=== PATIENT | male | born 1975 | race Caucasian/White ===

== ENCOUNTER 2016-05-14 10:52 | Emergency (ER) | payer BC, MEDICAID ==
[2016-05-14 11:21] VITALS: BP 172/82; PULSE 84; TEMP 98.1; BMI 49.7
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
== END 2016-05-14 11:44 | disposition home or self-care (01) ==
LOC: EDMC 10:52
DX: M54.12 Radiculopathy, cervical region (principal); B86 Scabies
CPT/HCPCS: 99283